=== PATIENT | male | born 1985 ===

== ENCOUNTER 2019-01-14 20:11 | Emergency (ER) | payer SELFPAY ==
[~2019-01-14 20:11] MED LIST: ROCURONIUM BROMIDE INJ 50 MG/5 ML VIAL IV ONE
[2019-01-14] MEDS ORDERED: NALOXONE HCL INJ 2 MG/2 ML DISP.SYRIN ONE ×2 (20:15→20:21)
[2019-01-14] MEDS ORDERED: MIDAZOLAM HCL 50 MG/100 ML RTUINJ ONE (20:35)
[2019-01-14] MEDS ORDERED: MIDAZOLAM HCL 50 MG/100 ML RTUINJ IV PRN (20:38)
[2019-01-14 20:47] LABS: HEMATOCRIT 47.3 % (37.9-51.0); HEMOGLOBIN 16.2 g/dL (13.5-17.0); MEAN CORPUSCULAR HEMOGLOBIN 31.4 pg (27.0-33.4); MEAN CORPUSCULAR HGB CONC 34.2 g/dL (32.0-36.0); MEAN CORPUSCULAR VOLUME 92 fl (80-97); PLATELET COUNT 419 10^3/uL (150-450); RED BLOOD COUNT 5.15 10^6/uL (4.35-5.55); RED CELL DISTRIBUTION WIDTH 15.6 % (11.5-14.0)
--- NOTE | 2019-01-14 20:55 | ER Document Report ---
ED General - General Chief Complaint: Possible Overdose Stated Complaint: UNRESPONSIVE Time Seen by Provider: 01/14/19 20:35 Mode of Arrival: Medic Notes: 33-year-old male brought to the emergency department by EMS for altered mental status. EMS was called to the house when the patient's roommates were not able to get a hold of him this evening. The bedroom door was locked. Patient is known by roommates to be an IV drug abuser. When EMS arrived the patient was on the floor unresponsive with hypoxia. 4mg of narcan was given. Patient's vital signs improved. Patient became more awake per EMS. Patient only moaning on arrival to the ED. He's not opening his eyes, following commands, or moving his extremities. GCS of 3. TRAVEL OUTSIDE OF THE [place] IN LAST 30 DAYS: No - Related Data Allergies/Adverse Reactions: Unable to Assess Allergy (Unverified 01/15/19 01:38) Past Medical History - Social History Smoking Status: Unknown if Ever Smoked Family History: None Review of Systems - Review of Systems -: Yes ROS unobtainable due to patient's medical condition Physical Exam - Vital signs Vitals: Resp Pulse Ox 29 H 80 L 01/14/19 20:13 01/14/19 20:13 - Notes Notes: PHYSICAL EXAMINATION: GENERAL: Unresponsive. Ill appearing. HEAD: GCS of 3. Swelling to the R forehead. EYES: Pupils 3mm and equal round and reactive to light, ENT: Nares patent, oropharynx clear without exudates. Moist mucous membranes dry LUNGS: Breath sounds clear to auscultation bilaterally and equal. No wheezes rales or rhonchi. HEART: Regular rate and rhythm without murmurs ABDOMEN: Soft, nontender, nondistended abdomen. No guarding, no rebound. Musculoskeletal: Erythema to the bilateral hands and forearms. Contusion to the forearms bilaterally. NEUROLOGICAL: Patient all 4 extremities. Squeezing eyes closed. Moaning. SKIN: Erythema to the bilateral hands/forarms. Contusions to bilateral forearms. Erythema across chest wall. Course - Re-evaluation Re-evalutation: 01/14/19 23:12 EKG: Ventricular rate 99, MD interval 124, QRS duration 80, QTc 426, normal sinus rhythm. No ST segment elevation. 01/14/19 23:31 01/14/19 23:34 CT head shows R frontal scalp hematoma. CT cervical spine is within normal limits. CXR does not show an acute process. ETT in place. Labs obtained. Patient's white blood cell count is elevated at 33. Patient has an elevated lactic acid, potassium, creatinine, liver function tests, troponin. CK is pending. Patient given 4 L of fluid. Vancomycin and Zosyn ordered for sepsis. His hyperkalemia was treated with insulin, dextrose, bicarb, kayexelate, albuterol, calcium gluconate. I was unable to reach our grooving machine operator reconsignment clerk, Dr. Vo. Patient is a candidate for emergent dialysis. As the patient is in critical condition, I contacted [facility] for transfer. 01/14/19 23:38 Dr. Smalls accepts transfer. Patient's care turned over to Dr. Marie. 01/15/19 23:07 - Vital Signs Vital signs: Temp Pulse Resp BP Pulse Ox 98.6 F 18 117/65 99 01/15/19 04:41 01/15/19 04:41 01/15/19 04:41 01/15/19 04:41 - Laboratory Result Diagrams: 01/14/19 20:30 01/14/19 21:15 Laboratory results interpreted by me: 01/14/19 01/14/19 01/14/19 20:30 20:30 20:37 WBC 33.7 H* RDW 15.6 H Seg Neuts % (Manual) 84 H Lymphocytes % (Manual) 6 L Abs Neuts (Manual) 29.3 H Abs Monocytes (Manual) 2.4 H VBG pH VBG HCO3 Potassium Carbon Dioxide Anion Gap BUN Creatinine Est GFR ( Amer) Est GFR (Non-Af Amer) Lactic Acid 10.8 H Calcium Direct Bilirubin AST ALT Ammonia 225.6 H Creatine Kinase CK-MB (CK-2) Urine Protein Urine Blood 01/14/19 01/14/19 01/14/19 21:15 21:15 21:58 WBC RDW Seg Neuts % (Manual) Lymphocytes % (Manual) Abs Neuts (Manual) Abs Monocytes (Manual) VBG pH VBG HCO3 Potassium 8.1 H* Carbon Dioxide 11 L Anion Gap 23 H BUN 33 H Creatinine 2.29 H Est GFR ( Amer) 41 L Est GFR (Non-Af Amer) 33 L Lactic Acid Calcium 7.7 L Direct Bilirubin 0.5 H AST 1650 H ALT 769 H Ammonia Creatine Kinase CK-MB (CK-2) 594.00 H Urine Protein 100 H Urine Blood LARGE H 01/14/19 01/15/19 01/15/19 23:15 00:47 00:47 WBC RDW Seg Neuts % (Manual) Lymphocytes % (Manual) Abs Neuts (Manual) Abs Monocytes (Manual) VBG pH 7.18 L* VBG HCO3 18.3 L Potassium Carbon Dioxide Anion Gap BUN Creatinine Est GFR ( Amer) Est GFR (Non-Af Amer) Lactic Acid 4.1 H Calcium Direct Bilirubin AST 2137 H ALT Ammonia Creatine Kinase 53381 H CK-MB (CK-2) Urine Protein Urine Blood Procedures - Intubation Nasotracheal Airway evaluation: Normal anatomy Mallampati Classification: Class 2 Medications: Etomidate, Succinylcholine Intubation method: Orotracheal Blade type: Ivan Blade size: 1 Equipment used: Glidescope ETT size: 7.5 ETT secured at: Lips ETT secured at (cm): 23 Breath Sounds after Intubation: Equal End tidal CO2 confirmed: Yes Intubation Complications: No complications Critical Care Note - Critical Care Note Total time excluding time spent on procedures (mins): 60 Discharge - Discharge Clinical Impression: MODS (multiple organ dysfunction syndrome) Condition: Stable Disposition: Tertiary-Other
[2019-01-14 21:06] LABS: ABSOLUTE MONOCYTES # (MANUAL) 2.4 10^3/uL (0.1-1.4); ABSOLUTE NEUTROPHILS# (MANUAL) 29.3 10^3/uL (1.7-8.2); BAND NEUTROPHILS % (MANUAL) 3 % (3-5); BASOPHILS % (MANUAL) 0 % (0-2); EOSINOPHILS % (MANUAL) 0 % (0-6); LYMPHOCYTES % (MANUAL) 6 % (13-45); MONOCYTES % (MANUAL) 7 % (3-13); SEGMENTED NEUTROPHILS % (MAN) 84 % (42-78); TOTAL CELLS COUNTED 100
--- NOTE | 2019-01-14 21:07 | RADIOLOGY REPORT (SQ) ---
EXAM DESCRIPTION: XR CHEST 1 VIEW COMPLETED DATE/TME: 01/14/2019 20:36 CLINICAL HISTORY: 33 years, Male, altered mental status Findings: The heart is moderately enlarged. Endotracheal tube and enteric tube are in appropriate placement. Lungs are clear. No pneumothorax. No pulmonary edema. No pleural effusions. IMPRESSION: Lines and tubes of life-support in place.
[2019-01-14 21:09] LABS: ANISOCYTOSIS SLIGHT; PLATELET COMMENT ADEQUATE; TOXIC GRANULATION SLIGHT
[2019-01-14 21:13] LABS: WHITE BLOOD COUNT 33.7 10^3/uL (4.0-10.5)
[2019-01-14] MEDS ORDERED: VANCOMYCIN HCL INJ 1000 MG VIAL IV ONE (21:24)
[2019-01-14] MEDS ORDERED: PIPERACILLIN/TAZOBACTAM 3.375 GM VIAL IV ONE (21:24)
[2019-01-14] MEDS ORDERED: ETOMIDATE INJ/PF 20 MG/10 ML SDV IV ONE (21:44)
[2019-01-14] MEDS ORDERED: SUCCINYLCHOLINE CHLORIDE INJ 200 MG/10 ML VIAL ONE (21:44)
[2019-01-14] MEDS ORDERED: NORMAL SALINE 1000 ML 1,000 ML IV ONE ×2 (21:52→23:05)
[2019-01-14] MEDS: NORMAL SALINE 1000 ML 1,000 ML IV PRN ×2 (21:54→21:56)
[2019-01-14 22:06] LABS: ALANINE AMINOTRANSFERASE 769 U/L (21-72); ALBUMIN 4.4 g/dL (3.5-5.0); ALKALINE PHOSPHATASE 86 U/L (38-126); BILIRUBIN,DIRECT 0.5 mg/dL (0.0-0.4); BILIRUBIN,TOTAL 0.7 mg/dL (0.2-1.3); BLOOD UREA NITROGEN 33 mg/dL (7-20); CALCIUM 7.7 mg/dL (8.4-10.2); GLUCOSE 88 mg/dL (75-110); TOTAL PROTEIN 7.2 g/dL (6.3-8.2)
[2019-01-14 22:13] LABS: CHLORIDE 105 mmol/L (98-107)
[2019-01-14 22:38] LABS: AMORPHOUS SEDIMENT,URINE TRACE /HPF; APPEARANCE,URINE CLOUDY; BILIRUBIN,URINE NEGATIVE (NEGATIVE); COLOR,URINE AMBER; GLUCOSE, URINE NEGATIVE (NEGATIVE); KETONES,URINE NEGATIVE (NEGATIVE); LEUKOCYTE ESTERASE,URINE NEGATIVE (NEGATIVE); NITRITE,URINE NEGATIVE (NEGATIVE); PROTEIN,URINE 100 mg/dL (NEGATIVE); URINE SPECIFIC GRAVITY 1.017; UROBILINOGEN,URINE NEGATIVE mg/dL (<2.0)
[2019-01-14 22:39] LABS: URINE AMPHETAMINES SCREEN NEGATIVE; URINE BARBITURATES SCREEN NEGATIVE; URINE BENZODIAZEPINES SCREEN UNCONFIRMED POSITIVE; URINE COCAINE SCREEN NEGATIVE; URINE MARIJUANA (THC) SCREEN NEGATIVE; URINE METHADONE SCREEN NEGATIVE; URINE PHENCYCLIDINE SCREEN NEGATIVE
[2019-01-14 22:49] LABS: ALCOHOL < 10 mg/dL (NONE DETECTED)
[2019-01-14 22:55] LABS: CARBON DIOXIDE 11 mmol/L (22-30); POTASSIUM 8.1 mmol/L (3.6-5.0)
[2019-01-14 22:56] LABS: TROPONIN I 0.585 ng/mL
[2019-01-14] MEDS ORDERED: INSULIN REG, HUMAN 100 UNIT/ML 3 ML VIAL (PYX) IV ONE (22:56)
[2019-01-14] MEDS ORDERED: CALCIUM GLUCONATE 1000 MG/10 ML INJ IV ONE (22:56)
[2019-01-14] MEDS ORDERED: SODIUM POLYSTYRENE SULFONATE 15 GM/60 ML NG ONE (22:56)
[2019-01-14] MEDS ORDERED: DEXTROSE 50%-WATER 25 GM/50 ML DISP.SYRIN IV ONE (22:56)
[2019-01-14] MEDS ORDERED: ALBUTEROL SULFATE 0.083% NEB 2.5 MG/3 ML AMPUL NEB ONE (22:57)
[2019-01-14 23:03] LABS: ASPARTATE AMINO TRANSFERASE 1650 U/L (17-59)
[2019-01-14 23:05] LABS: ANION GAP 23 (5-19)
--- NOTE | 2019-01-14 23:05 | RADIOLOGY REPORT (SQ) ---
EXAM DESCRIPTION: CT HEAD WITHOUT IV CONTRAST COMPLETED DATE/TME: 01/14/2019 20:37 CLINICAL HISTORY: 33 years, Male, ams COMPARISON: None. TECHNIQUE: 390 Images stored on PACS. All CT scanners at this facility use dose modulation, iterative reconstruction, and/or weight based dosing when appropriate to reduce radiation dose to as low as reasonably achievable (ALARA). [facility]: Dose Right [facility]: CareDose [facility]: Dose Right [facility]: Teradose 4D [facility]: [employer] LIMITATIONS: None. FINDINGS: Endotracheal tube partially visualized. The globes are intact. Paranasal sinuses and mastoid air cells are unremarkable. No displaced or depressed skull fracture. Small right frontal scalp hematoma. Negative for acute intracranial hemorrhage. CT is limited for evaluation of acute infarct. No CT evidence for large or territorial acute infarct. No mass or midline shift. IMPRESSION: Small right frontal scalp hematoma. Negative for acute intracranial abnormality TECHNICAL DOCUMENTATION: Quality ID # [id number]: Final reports with documentation of one or more dose reduction techniques (e.g., Automated exposure control, adjustment of the mA and/or kV according to patient size, use of iterative reconstruction technique) copyright 2011 [employer]- All Rights Reserved
--- NOTE | 2019-01-14 23:05 | RADIOLOGY REPORT (SQ) ---
EXAM DESCRIPTION: CT CERVICAL SPINE WITHOUT IV CONTRAST COMPLETED DATE/TME: 01/14/2019 20:37 CLINICAL HISTORY: 33 years, Male, found on floor This exam was performed according to our departmental dose-optimization program which includes automated exposure control, adjustment of the mA and/or kVp according to patient size and/or use of iterative reconstruction technique where applicable. FINDINGS: Vertebral body heights are intact. Alignment is intact. No subluxation. Facets are normally aligned. No significant prevertebral soft tissue swelling. Odontoid process is intact. IMPRESSION: No acute fracture or subluxation.
[2019-01-14] MEDS ORDERED: DEXTROSE 5%-WATER 1000 ML 1,000 ML with SODIUM BICARBONATE 150 MEQ IV PRN ×2 (23:07)
--- NOTE | 2019-01-14 23:19 | RADIOLOGY REPORT (SQ) ---
EXAM DESCRIPTION: XR FOREARM 2 VIEWS BILATERAL COMPLETED DATE/TME: 01/14/2019 21:02 CLINICAL HISTORY: 33 years, Male, contusion COMPARISON: None. NUMBER OF VIEWS: 4 TECHNIQUE: 2 views of each forearm LIMITATIONS: None. FINDINGS: Left forearm: Negative for fracture or dislocation. Soft tissues are unremarkable. Joint spaces are preserved. Right forearm: Negative for fracture or dislocation. Soft tissues are unremarkable. Joint spaces are preserved IMPRESSION: Negative exam copyright 2010 [employer]- All Rights Reserved
[2019-01-14] MEDS ORDERED: SODIUM BICARBONATE 8.4% INJ 50 MEQ/50 ML DISP.SYRIN ONE (23:32)
[2019-01-15 00:20] LABS: FREE T4 (FREE THYROXINE) 1.32 ng/dL (0.78-2.19); THYROID STIMULATING HORMONE 1.6 uIU/mL (0.47-4.68)
[2019-01-15 00:25] LABS: ASPARTATE AMINO TRANSFERASE 2137 U/L (17-59)
[2019-01-15 00:59] LABS: VENOUS BLOOD BASE EXCESS -10.2 mmol/L; VENOUS BLOOD HCO3 18.3 mmol/L (20-32); VENOUS BLOOD PCO2 49.8 mmHg (35-63)
[2019-01-15 01:01] LABS: VENOUS BLOOD PH 7.18 (7.30-7.42)
[2019-01-15] MEDS ORDERED: FENTANYL CITRATE INJ/PF 100 MCG/2 ML AMPUL IV ONE ×2 (01:16→05:00)
[2019-01-15] MEDS ORDERED: ROCURONIUM BROMIDE INJ 50 MG/5 ML VIAL IV ONE ×2 (01:16→04:59)
[2019-01-15 02:14] LABS: CREATINE KINASE 66090 U/L (55-170)
[2019-01-15] MEDS ORDERED: FENTANYL CITRATE INJ/PF 100 MCG/2 ML AMPUL ONE (04:46)
[2019-01-15 05:22] VITALS: BP 117/65
--- NOTE | 2019-01-15 07:38 | EKG REPORT ---
SEVERITY:- NORMAL ECG - SINUS RHYTHM : Confirmed by: Jp Hsieh MD 15-Jan-2019 07:38:09
[2019-01-15 11:34] LABS: PATH REVIEW PATHOLOGIST REVIEWED
== END 2019-01-15 04:55 | disposition short-term general hospital (02) ==
LOC: ER 20:11
DX: A41.9 Sepsis, unspecified organism (principal); R65.20 Severe sepsis without septic shock; E87.5 Hyperkalemia; S00.83XA Contusion of other part of head, initial encounter; S50.12XA Contusion of left forearm, initial encounter; S50.11XA Contusion of right forearm, initial encounter; X58.XXXA Exposure to other specified factors, initial encounter; L53.9 Erythematous condition, unspecified
CPT/HCPCS: 93005; 36415; 87040; 84439; 82553; 80307 ×2; 82140; 82550; 84450; 84443; 85025; 80053; 81001; 84484; 82803; 83605; 71045; 73090; 70450; 72125; 94660; 93010; 31500; J0610; J3490 ×5; J3010; J1815; J0330; J2310; J2250; J7060; J7030; J3370; J2543